=== PATIENT | female | born 1985 | race Caucasian/White ===

== ENCOUNTER 2019-12-30 14:00 | Outpatient (CLI) | payer OTHER, SELFPAY ==
--- NOTE | ~2019-12-30 | CT_ITS ---
EXAMINATION: CT brain wo con DATE: 12/30/2019 14:30 INDICATION: Loss of consciousness. Left-sided tingling. TECHNIQUE: Computed tomography (CT) of the head was performed without intravenous contrast. The dose- length product was 605.33 mGy-cm. The mA was adjusted according to patient size. Iterative reconstruc tion technique was employed. COMPARISON: None FINDINGS: Mild generalized atrophy. Chronic bilateral posterior parietal infarctions. There are scatt ered mild periventricular and subcortical white matter changes, most likely related to small vessel i schemic disease (microangiopathy). No ventriculomegaly or midline shift. The basilar cisterns are pat ent. Chronic bilateral frontal lobe infarctions. Paranasal sinuses and mastoids are pneumatized. No d epressed skull fractures. IMPRESSION: 1. No acute intracranial abnormality. 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 3: Chronic age-related findings. Reviewed, dictated and finalized at location A.
== END 2019-12-30 14:01 | disposition home or self-care (01) ==
LOC: ANHIMG 14:04
PROVIDERS: PCP Internal Medicine Gastroenterology; Visit Provider Psychiatry & Neurology Neurology
DX: R20.2 Paresthesia of skin (principal); R55 Syncope and collapse; Z86.73 Personal history of transient ischemic attack (TIA), and cerebral infarction without residual deficits
CPT/HCPCS: 70450

== ENCOUNTER 2020-06-01 06:52 | Outpatient (NON) | payer OTHER, SELFPAY ==
[2020-06-01 23:09] LABS: SARS-CoV-2 RNA PCR Negative
== END 2020-06-01 06:53 ==
PROVIDERS: PCP Internal Medicine Gastroenterology
DX: Z01.812 Encounter for preprocedural laboratory examination (principal); Z20.828 Contact with and (suspected) exposure to other viral communicable diseases
CPT/HCPCS: 87635; C9803; U0003

== ENCOUNTER 2021-02-17 14:54 | Emergency (ER) | payer OTHER, SELFPAY ==
--- NOTE | ~2021-02-17 | XR_ITS ---
XR chest 2V 02/17/2021 15:55 Indication: Dyspnea Procedure: PA and lateral views of the chest Comparison: CT dated 03/22/2019 and multiple chest x-rays dating back to 10/17/2009 Findings: Status post median sternotomy. Elevated right diaphragm. No focal air space disease, pulmon alcon edema, pleural effusion or suspected pneumothorax. Status post partial right pneumonectomy. No ac [place] osseous abnormality. Impression: 1: No acute cardiopulmonary disease. Reviewed, dictated and finalized at location B. Impression: 1: No acute cardiopulmonary disease.
[2021-02-17 15:22] VITALS: BP 119/81; PULSE 95; RESP 18; TEMP 37.1; O2SAT 97
--- NOTE | 2021-02-17 15:25 | ECG_ITS ---
Measurements Intervals [place] Rate: 73 P: -28 PA: 169 QRS: 87 QRSD: 98 T: 19 QT: 374 QTc: 414 Interpretive Statements SINUS OR ECTOPIC ATRIAL RHYTHM T WAVE ABNORMALITY IN ANTERIOR LEADS- CONSIDER ISCHEMIA ABNORMAL ECG Electronically Signed On 02-17-2021 15:47:22 CDT by Shekhar De La Garza D.O.
[2021-02-17 16:03] LABS: Basophils Percent Auto 0.2 % (0.2-1.2); Eosinophils Absolute Auto 0.1 K/mm3 (0-0.3); Eosinophils Percent Auto 1.2 % (0-4.4); Hematocrit 42.3 % (37.0-47.0); Hemoglobin 13.7 g/dL (12.0-15.0); Immature Granulocyte Absolute 0.01 K/mm3 (0.00-0.031); Immature Granulocyte Percent A 0.2 % (0-0.5); Lymphocytes Absolute Auto 1.01 K/mm3 (0.9-3.2); Lymphocytes Percent Auto 17.8 % (18.3-44.2); Mean Corpuscular HGB Conc 32.4 g/dl (32-36); Mean Corpuscular Hemoglobin 29.2 pg (26-34); Mean Corpuscular Volume 90.2 fl (80-100); Mean Platelet Volume 12.2 fl (7.4-10.4); Monocytes Absolute Auto 0.6 K/mm3 (0.1-0.6); Monocytes Percent Auto 10.2 % (2.6-8.5); Neutrophils Percent Auto 70.4 % (45.5-73.1); Platelet Count Result 109 k/mm3 (150-375); Red Blood Count 4.69 M/mm3 (4.2-5.4); Red Cell Distribution Width 13.2 % (11.5-14.5); White Blood Count 5.7 K/mm3 (4.5-10.0)
[2021-02-17 16:21] LABS: INR 1.2; Prothrombin Time 16.1 Seconds (11.1-14.7)
[2021-02-17 16:22] LABS: Partial Thromboplastin Time 31.6 SECONDS (22.3-36.8)
[2021-02-17 16:32] LABS: Troponin I < 0.012 ng/mL (0.000-0.034)
[2021-02-17 17:36] VITALS: BP 126/83; PULSE 77; RESP 21; O2SAT 99
[2021-02-17 17:42] VITALS: PULSE 71
--- NOTE | 2021-02-17 17:44 | ED.CHESTPAIN ---
HPI - Chest Pain General Chief Complaint: Chest Pain Stated Complaint: rib pain, chest pain with movement Time Seen by Provider: 02/17/21 17:36 Source: RN notes reviewed History of Present Illness HPI narrative: Patient presents to emergency department from home for chest pain. Patient states she has been having constant pain for the past 3 days over the bilateral lower anterior chest states the pain is located to the anterior ribs bilaterally described as aching in nature and worse with movement she denies any trauma or injury denies any fevers or chills shortness of breath abdominal pain nausea vomiting or any other symptoms states she is taking no medication for the symptoms today Related Data Home Medications Medication Instructions Recorded Confirmed aspirin [Aspirin Childrens] 02/17/21 melatonin 10 mg PO HS PRN 02/17/21 Allergies Allergy/AdvReac Type Severity Reaction Status Date / Time amitriptyline Allergy Mild Unknown Verified 02/17/21 17:47 cefazolin Allergy Mild Unknown Verified 02/17/21 17:47 vancomycin Allergy Mild Other Verified 02/17/21 17:47 enoxaparin Allergy Unknown Unknown Verified 02/17/21 17:47 CYCLOBENZAPRINE HCL Allergy Mild Unknown Uncoded 02/17/21 17:47 Contrast Media Allergy Unknown Rash Uncoded 02/17/21 17:47 Review of Systems Review of Systems: Narrative: Gen.: Denies fevers or chills ENT: Denies congestion Respiratory: Denies shortness of breath or cough CV: Reports chest pain GI: Denies abdominal pain nausea, emesis or diarrhea Musculoskeletal: Denies back pain or muscle pain Neuro: Denies numbness, tingling, weakness or focal weakness Skin: Denies rash Except as documented, all other systems reviewed and negative [facility] Past Medical History Medical History (Updated 02/17/21 @ 20:18 by Steven Shankar DO) Congenital heart disease Social History Social History (Updated 02/17/21 @ 17:45 by Steven Shankar DO) Smoking status: Never smoker Exam Narrative: Exam Narrative: APPEARANCE: No acute distress, nontoxic, resting in bed EYES: EOMI HEENT: Normocephalic, atraumatic, OMM RESPIRATORY: No respiratory distress Clear to auscultation bilaterally with no rhonchi wheezing or rales. CARDIOVASCULAR: Regular rate and rhythm without murmurs rubs or gallops. Chest: Tender palpation of bilateral anterior chest wall over ribs 8 through 10 pain increased with deep inspiration no overlying swelling or ecchymosis ABDOMINAL: Soft, nontender, nondistended, no rebound or guarding MUSCULOSKELETAl: Moves all extremities. No clubbing, cyanosis or edema. NEURO: Awake and alert. Following commands, speech normal, no focal deficits SKIN:: Warm, dry. No rashes lesions or abrasions PSYCHIATRIC: Normal affect/mood, Course Course Emergency Course: records patient with history of low hemoglobin levels performed past Discussed with patient results of workup and diagnosis. Discussed need for follow-up with primary care, proper use of medication, and reasons to return to the emergency department. Patient understands and agrees to current treatment plan Vital Signs Vital signs: Vital Signs Temperature 98.8 F 02/17/21 15:22 Pulse Rate 95 02/17/21 15:22 Respiratory Rate 18 02/17/21 15:22 Blood Pressure 119/81 02/17/21 15:22 Pulse Oximetry 97 02/17/21 15:22 Temperature 98.8 F 02/17/21 15:22 Pulse Rate 72 02/17/21 20:01 Respiratory Rate 18 02/17/21 20:01 Blood Pressure 125/76 02/17/21 20:01 Pulse Oximetry 98 02/17/21 20:01 MDM - Chest Pain MDM Narrative Medical decision making narrative: Patient's EKGs and labs are without significant high risk changes. Cardiac risk factors reviewed. Patient is felt likely low risk for ACS and reasonable for further risk stratification testing as an outpatient. Pain was not sudden or maximal in onset without tearing or ripping quality. No other signs of symptoms suggest aortic dissection. A low-risk Wells criteria is noted, P
[2021-02-17 18:49] LABS: Anion Gap 13 mmol/L (8-16); Blood Urea Nitrogen 4 mg/dL (7-17); Calcium 9.7 mg/dL (8.4-10.2); Carbon Dioxide 20 mmol/L (22-30); Chloride 107 mmol/L (98-107); Estimated CRCL calculation 91 ml/min; Estimated Glomerular Filt Rate > 60; Glucose 99 mg/dL (65-105); Potassium 3.5 mmol/L (3.4-5.0); Sodium 140 mmol/L (137-145)
[2021-02-17] MEDS: KETOROLAC 30 MG/ML VIAL (*BKC) IV PUSH (18:59)
[2021-02-17 19:00] VITALS: BP 136/70; PULSE 66; RESP 22; O2SAT 100
--- NOTE | 2021-02-17 19:00 | PC.NURSE ---
pt refuses asa at this time. pt reports taking 821 mg baby asa this morning. pt agrees to toradol
[2021-02-17 19:19] LABS: Troponin I < 0.012 ng/mL (0.000-0.034)
[2021-02-17 19:36] LABS: D Dimer 0.27 ug/mL (<0.48)
[2021-02-17 20:01] VITALS: BP 125/76; PULSE 72; RESP 18; O2SAT 98
[2021-02-17 20:37] VITALS: BP 117/76; PULSE 76; RESP 22; O2SAT 95
== END 2021-02-17 21:15 | disposition home or self-care (01) ==
PROVIDERS: Emergency Medicine; Emergency Provider Emergency Medicine; PCP Internal Medicine Gastroenterology
DX: R07.89 Other chest pain (principal); Q24.9 Congenital malformation of heart, unspecified; Z79.82 Long term (current) use of aspirin
CPT/HCPCS: 36415; 71046; 80048; 81025; 84484; 85025; 85380; 85610; 85730; 93005; 96374; 99284; A9270; J1885

== ENCOUNTER 2022-11-17 17:57 | Emergency (ER) | payer OTHER, SELFPAY ==
--- NOTE | ~2022-11-17 | CT_ITS ---
EXAMINATION: CT abdomen pelvis wo con DATE: 11/17/2022 19:50 INDICATION: Right lower quadrant abdominal pain for 14 days, intermittent nausea TECHNIQUE: Computed tomography (CT) of the abdomen and pelvis was performed without intravenous contr ast. Automated exposure control and iterative reconstruction technique were employed. Exam dose: 197 .86 mGy-cm total exam DLP. COMPARISON: 03/14/2019 CT abdomen pelvis FINDINGS: The lung bases are clear of infiltrate or consolidation. A stent is noted in the IVC. Status post sternotomy. The liver, gallbladder, bile ducts spleen, pancreas and pancreatic duct, and adrenal glands are unrem arkable. Right parapelvic renal cyst. No urinary tract calculus or hydroureteronephrosis is noted. Normal caliber of the abdominal aorta. There is a prominent of fecal material in the rectum and colon. No bowel obstruction is detected. The uterus, adnexal areas and urinary bladder are unremarkable. Included skeletal structures are unremarkable. IMPRESSION: No significant change is noted since 03/14/2019 Reviewed, dictated and finalized at Location [facility]. Reviewed, dictated and finalized at location A.
[2022-11-17 18:08] VITALS: BP 126/75; PULSE 88; RESP 16; TEMP 36.9; O2SAT 100
[2022-11-17 18:32] LABS: Basophils Absolute Auto 0.1 K/mm3 (0.0-0.1); Basophils Percent Auto 0.4 % (0.2-1.2); Eosinophils Absolute Auto 0.1 K/mm3 (0-0.3); Eosinophils Percent Auto 0.9 % (0-4.4); Hematocrit 47.7 % (37.0-47.0); Hemoglobin 15.2 g/dL (12.0-15.0); Immature Granulocyte Absolute 0.03 K/mm3 (0.00-0.031); Immature Granulocyte Percent A 0.3 % (0-0.5); Lymphocytes Absolute Auto 1.53 K/mm3 (0.9-3.2); Lymphocytes Percent Auto 13.1 % (18.3-44.2); Mean Corpuscular HGB Conc 31.9 g/dl (32-36); Mean Corpuscular Hemoglobin 28.3 pg (26-34); Mean Corpuscular Volume 88.8 fl (80-100); Mean Platelet Volume 11.4 fl (7.4-10.4); Monocytes Absolute Auto 0.9 K/mm3 (0.1-0.6); Monocytes Percent Auto 7.8 % (2.6-8.5); Neutrophils Percent Auto 77.5 % (45.5-73.1); Platelet Count Result 239 k/mm3 (150-375); Red Blood Count 5.37 M/mm3 (4.2-5.4); Red Cell Distribution Width 13.8 % (11.5-14.5); White Blood Count 11.7 K/mm3 (4.5-10.0)
[2022-11-17 18:41] LABS: Alanine Aminotransferase 19 U/L (6-35); Alkaline Phosphatase 106 U/L (38-126); Anion Gap 10 mmol/L (8-16); Aspartate Amino Transferase 26 U/L (14-36); Bilirubin,Total 0.9 mg/dL (0.2-1.3); Blood Urea Nitrogen 5 mg/dL (7-17); Carbon Dioxide 26 mmol/L (22-30); Chloride 104 mmol/L (98-107); Estimated CRCL calculation 87 ml/min; Estimated Glomerular Filt Rate > 60; Glucose 105 mg/dL (65-110); Lipase 159 U/L (23-300); Potassium 3.5 mmol/L (3.4-5.0); Sodium 140 mmol/L (137-145)
[2022-11-17 18:56] LABS: Appearance Urine Clear (Clear); Bilirubin Urine Negative (Negative); Blood Urine Negative (Negative); Color Urine Yellow (Yellow); Glucose Urine UA Negative (Negative); Ketones Urine Negative (Negative); Leukocyte Esterase Ur Negative LEU/UL (Negative); Nitrate Urine Negative (Negative); Protein Urine Negative (Negative); Specific Grav Ur 1.007 (1.001-1.035); Urobilinogen Urine 0.2 mg/dL (<2.0); pH Urine 5.5 (5.0-9.0)
[2022-11-17 18:59] LABS: Add Urine Microscopic? NO
[2022-11-17 19:58] VITALS: BP 138/80; PULSE 83; RESP 16; O2SAT 100
--- NOTE | 2022-11-17 20:31 | ED.ABDPAIN ---
HPI - Abdominal Pain General Chief Complaint: Abdominal Pain Stated Complaint: abd pain Time Seen by Provider: 11/17/22 19:04 History of Present Illness HPI narrative: This is a 37-year-old female with past medical history of congenital heart disease who presents to the emergency department complaining of sharp right lower quadrant abdominal pain for the past 2 weeks. She states the pain remains in the right lower quadrant, does not radiate and is aggravated by direct pressure or quick movements. She states [facility] and was told ovarian cysts were found. She states she was advised by her OB, Dr. Cortes, to come to the ED for further evaluation. Related Data Home Medications Medication Instructions Recorded Confirmed aspirin 81 mg chewable tablet 02/17/21 (Aspirin Childrens) melatonin 10 mg tablet 10 mg PO HS PRN Insomnia 02/17/21 acetaminophen 325 mg capsule 325 mg PO Q6H PRN 05/18/22 Allergies Allergy/AdvReac Type Severity Reaction Status Date / Time amitriptyline Allergy Mild Unknown Verified 11/17/22 17:58 cefazolin Allergy Mild Unknown Verified 11/17/22 17:58 vancomycin Allergy Mild Other Verified 11/17/22 17:58 enoxaparin Allergy Unknown Unknown Verified 11/17/22 17:58 CYCLOBENZAPRINE HCL Allergy Mild Unknown Uncoded 11/17/22 17:58 Contrast Media Allergy Unknown Rash Uncoded 11/17/22 17:58 Review of Systems Eyes: Eyes: Reports no additional eye complaints ENT: Reports system reviewed and no additional complaints, except as documented Cardiovascular: Cardiovascular: Reports no additional cardiovascular complaints Respiratory: Respiratory: Reports no additional respiratory complaints Gastrointestinal: Gastrointestinal: Reports abdominal pain Comments: Denies nausea or vomiting. Denies blood in stool Genitourinary: Genitourinary: Reports no additional female genitourinary complaints Comments: Denies vaginal bleeding, denies hematuria or dysuria Musculoskeletal: Musculoskeletal: Reports no additional musculoskeletal complaints Neurologic: Reports system reviewed and no additional complaints, except as documented Comments: Denies syncope Psychiatric: Psychiatric: Reports no additional psychiatric complaints PMF Past Medical History Medical History (Updated 11/20/22 @ 14:48 by Vincent Mensah MD) Anorexia Blood in stool Congenital heart disease History of repaired congenital cardiovascular anomaly Marijuana dependence Nausea PTSD (post-traumatic stress disorder) Thrombocytopenia Weight loss Social History Social History Social History: never smoker Smoking status: Never smoker Alcohol intake: current Alcohol use details: social Substance use: current Substance use type: marijuana and prescription drug Exam Narrative: GENERAL: Well-developed, thin, and in no acute distress, appears uncomfortable. HEAD: Normocephalic, atraumatic. EYES: PERRLA and EOMI. ENT: Nares clear, no rhinorrhea or epistaxis. Mucous membranes moist. Oropharynx without tonsillar hypertrophy exudate or other lesions. CHEST: Clear to auscultation. No respiratory distress. No wheezes rales or rhonchi HEART: Regular rate and rhythm. Systolic murmur 2/6, greater over the aortic region. Normal peripheral pulses. ABDOMEN: Soft, tender in the right lower quadrant without rebound, roving's sign negative, nondistended, normal active bowel sounds. EXTREMITIES: Normal range of motion. No edema. SKIN: Warm, dry, no rash. NEURO: No focal deficits. Alert and oriented x3. PSYCH: Normal mood and affect. Course Course Emergency Course: 20:50 - White blood cell count marginally elevated at 11.7. Chemistries unremarkable. UA negative. CT abdomen pelvis unremarkable. I discussed the patient with [employer], Dr. Cortes who is familiar with the patient and would accept admission if indicated. Discussed this findin
[2022-11-17 21:30] VITALS: BP 98/70; PULSE 85; RESP 16; O2SAT 95
== END 2022-11-17 21:36 | disposition home or self-care (01) ==
PROVIDERS: Emergency Provider Preventive Medicine Aerospace Medicine
DX: N83.209 Unspecified ovarian cyst, unspecified side (principal)
CPT/HCPCS: 36415; 74176; 80053; 81003; 81025; 83690; 85025; 99284